=== PATIENT | female | born 1995 | race Caucasian/White ===

== ENCOUNTER → 2017-01-25 | Day surgery (SDC) | payer OTHER ==
[~2017-01-25] VITALS: Ht 154.9 cm; Wt 44.5 kg
[~2017-01-25] MED LIST: ABILIFY5 M1 PO; KLONOPIN2 M1 PO; LAMICTAL XR200 M1 PO; NUCYNTA PO
--- NOTE | 2017-01-25 15:13 | Operative Report ---
Operative/Inv Procedure Report Surgery Date: 01/25/17 Name of Procedure: CYSTO: HYDRODISTENSION Pre-Operative Diagnosis: IC/HEMATURIA/BLADDER PAIN Post-Operative Diagnosis: SAME Estimated Blood Loss: scant Surgeon/Paper Processing Machine Helper: RAY PAT MD Anesthesia: moderate sedation Complications: NONE Operative/Procedure Note Note: The patient was taken to the operative room and placed on the OR table in supine position. Timeout was performed in order to confirm the patient's identity, procedure, anesthesia, antibiotics, as well as any other pertinent information. After adequate anesthesia, and antibiotics, the patient was then placed lithotomy stirrups draped and prepped in the usual surgical fashion. The urethra was noted to be narrow/strictured requiring sequential dilatation with sounds from 12-22fr sequentially. A 22 Syriac cystoscope sheath with a 30 angle lens was then inserted into the urethra and advanced into the bladder without difficulty. The bladder was noted to have the findings as discussed above. The bladder was then hydrodistended 2 with the irrigation fluid at 40 cm above the symphysis pubis. moderate evidence of increased petechiae with the first and 2nd hydrodistention was seen. No Hunner's ulceration was noted. Both ureteral orifices had clear reflux in their orthotopic position. No terminal bleed with drainage. Bladder capacity was normal at 700cc. The bladder was then drained, and the cystoscope was removed under direct visualization. 20cc of urojet lidocain was instilled into the bladder for local anesthesia. The patient tolerated procedure well and was taken to recovery room in satisfactory condition. Discharge Disposition: Same Day Admissions CC: RAY PAT MD
== END ==
LOC: STS 01:20
DX: R31.9 Hematuria, unspecified (principal); R39.89 Other symptoms and signs involving the genitourinary system; Z87.448 Personal history of other diseases of urinary system
CPT/HCPCS: 81025; J0131; J2250